=== PATIENT | female | born 1965 | race American Indian/Alaskan Native ===

== ENCOUNTER 2017-03-14 14:53 | Outpatient (CLI) | payer OTHER | END 2017-03-14 14:54 | disposition home or self-care (01) | LOC: LABHHL 14:53 | PROVIDERS: ATTEND Internal Medicine Gastroenterology | DX: Z12.11 Encounter for screening for malignant neoplasm of colon (principal); Z86.010 Personal history of colon polyps | CPT/HCPCS: 88305 ==

== ENCOUNTER 2017-08-09 13:55 | Outpatient (CLI) | payer OTHER ==
--- NOTE | 2017-08-09 14:39 | XRay Report ---
RIGHT HIP RADIOGRAPHS INDICATION: Hip pain. COMPARISON: None similar. FINDINGS: An AP pelvic radiograph with frog-leg projection of the right hip demonstrate normal femoral head contours. Imaged bilateral SI and hip joints appear intact. Nonobstructive bowel gas pattern. Innumerable pelvic phleboliths. CONCLUSION: No acute radiographic abnormality. Thank you for the opportunity to participate in this patient's care.
== END 2017-08-09 13:56 | disposition home or self-care (01) ==
LOC: XRAY 13:55
PROVIDERS: ATTEND Family Medicine
DX: M25.551 Pain in right hip (principal); I87.8 Other specified disorders of veins